=== PATIENT | female | born 1990 | race Caucasian/White ===

== ENCOUNTER 2018-09-01 19:50 | Emergency (ER) | payer SELFPAY ==
[2018-09-01 22:58] LABS: ADD MAN DIFF? NO
[2018-09-01 23:01] LABS: BASOPHILS % 0.2 % (0.0-2.0); EOSINOPHILS # 0.2 10^3/ul (0.0-0.5); EOSINOPHILS % 1.4 % (0.0-7.0); HEMATOCRIT 36.3 % (37.0-47.0); HEMOGLOBIN 12.2 g/dl (12.0-16.0); LYMPHOCYTES # 3.7 10^3/ul (0.8-2.9); LYMPHOCYTES % 22.4 % (15.0-51.0); MEAN CORPUSCULAR HEMOGLOBIN 30.3 pg (29.0-33.0); MEAN CORPUSCULAR HGB CONC 33.6 g/dl (32.0-37.0); MEAN CORPUSCULAR VOLUME 90.1 fl (82.0-101.0); MEAN PLATELET VOLUME 9.8 fl (7.4-10.4); MONOCYTE # 0.9 10^3/ul (0.3-0.9); MONOCYTES % 5.5 % (0.0-11.0); NEUTROPHIL # 11.6 10^3/ul (1.6-7.5); PLATELET COUNT 316 10^3/UL (140-415); RED BLOOD COUNT 4.03 10^6/ul (4.20-5.40); RED CELL DISTRIBUTION WIDTH 12.9 % (11.5-14.5)
[2018-09-01 23:01] LABS: WHITE BLOOD COUNT 16.5 10^3/ul (4.8-10.8)
[2018-09-01 23:45] LABS: ADD UMIC YES; UR ASCORBIC ACID NEGATIVE (NEGATIVE); UR BACTERIA FEW /HPF (NONE SEEN); UR BILIRUBIN (Dip) NEGATIVE (NEGATIVE); UR BLOOD (Dip) 1+ mg/dL (NEGATIVE); UR CLARITY CLEAR (CLEAR); UR COLOR RED (YELLOW); UR GLUCOSE (Dip) NEGATIVE (NEGATIVE); UR KETONES (Dip) NEGATIVE (NEGATIVE); UR LEUKOCYTE ESTERASE (Dip) NEGATIVE Leu/ul (NEGATIVE); UR NITRITE (Dip) NEGATIVE (NEGATIVE); UR RBC 0 /HPF (0-5); UR SPECIFIC GRAVITY (Dip) 1.003 (1.003-1.030); UR TOTAL PROTEIN (Dip) NEGATIVE (NEGATIVE); UR UROBILINOGEN (Dip) NEGATIVE (NEGATIVE); UR WBC 0 /HPF (0-5)
== END 2018-09-02 00:50 | disposition home or self-care (01) ==
LOC: FTE 09-02 00:50
DX: O20.9 Hemorrhage in early pregnancy, unspecified (principal); R10.2 Pelvic and perineal pain; Z3A.01 Less than 8 weeks gestation of pregnancy
CPT/HCPCS: 36415; 76801; 76817; 81001; 84702; 85025; 99284-25

== ENCOUNTER 2018-11-09 02:36 | Emergency (ER) | payer SELFPAY, MEDICAID | END 2018-11-09 04:09 | disposition left against medical advice (07) | LOC: FTE 02:36 | DX: Z53.21 Procedure and treatment not carried out due to patient leaving prior to being seen by health care provider (principal) ==

== ENCOUNTER 2019-04-16 08:49 | Inpatient (IN) | payer OTHER, MEDICAID ==
[2019-04-16] MEDS ORDERED: OXYTOCIN 30 UNITS/LR 500 ML IV (09:30)
[2019-04-16] MEDS ORDERED: CARBOPROST 250 MCG INJ IM (09:30)
[2019-04-16] MEDS ORDERED: BUTORPHANOL 2 MG INJ IV (09:30)
[2019-04-16] MEDS ORDERED: METHYLERGONOVINE 0.2 MG INJ IM (09:30)
[2019-04-16] MEDS ORDERED: LIDOCAINE 1% (MPF) 30 ML INJ INJ (09:30)
[2019-04-16 09:50] LABS: ADD MAN DIFF? NO
[2019-04-16 09:53] LABS: BASOPHILS % 0.2 % (0.0-2.0); EOSINOPHILS # 0.2 10^3/ul (0.0-0.5); HEMATOCRIT 34.7 % (37.0-47.0); HEMOGLOBIN 11.8 g/dl (12.0-16.0); LYMPHOCYTES # 3.3 10^3/ul (0.8-2.9); LYMPHOCYTES % 20.4 % (15.0-51.0); MEAN CORPUSCULAR HEMOGLOBIN 30.1 pg (29.0-33.0); MEAN CORPUSCULAR VOLUME 88.5 fl (82.0-101.0); MEAN PLATELET VOLUME 10.2 fl (7.4-10.4); MONOCYTE # 0.9 10^3/ul (0.3-0.9); MONOCYTES % 5.6 % (0.0-11.0); NEUTROPHIL # 11.7 10^3/ul (1.6-7.5); NEUTROPHILS % 71.6 % (39.0-77.0); PLATELET COUNT 266 10^3/UL (140-415); RED BLOOD COUNT 3.92 10^6/ul (4.20-5.40); RED CELL DISTRIBUTION WIDTH 14.6 % (11.5-14.5)
[2019-04-16 09:53] LABS: WHITE BLOOD COUNT 16.3 10^3/ul (4.8-10.8)
[2019-04-16 10:09] LABS: ANION GAP 7 (5-13); Estimated GFR > 60 mL/min (>60)
[2019-04-16 10:10] LABS: URIC ACID 7.2 mg/dl (3.1-7.9)
[2019-04-16 10:10] LABS: ALANINE AMINOTRANSFERASE 22 IU/L (13-69); ALBUMIN 3.3 g/dl (3.3-4.9); ALBUMIN/GLOBULIN RATIO 0.97; ALKALINE PHOSPHATASE 160 IU/L (42-121); ASPARTATE AMINO TRANSFERASE 25 IU/L (15-46); BILIRUBIN,INDIRECT 0.3 mg/dl (0-1.1); BILIRUBIN,TOTAL 0.3 mg/dl (0.2-1.3); BLOOD UREA NITROGEN 14 mg/dl (7-20); CARBON DIOXIDE 21 mmol/L (21-31); CHLORIDE 108 mmol/L (97-110); CREATININE 0.57 mg/dl (0.44-1.00); GLUCOSE 73 mg/dl (70-220); POTASSIUM 3.8 mmol/L (3.5-5.1); SODIUM 136 mmol/L (135-144); TOTAL PROTEIN 6.7 g/dl (6.1-8.1)
[2019-04-16 10:18] LABS: INR 0.91; PROTIME 12.4 Sec (11.9-14.9)
[2019-04-16 10:19] LABS: PARTIAL THROMBOPLASTIN TIME 27.6 Sec (23.0-35.0)
[2019-04-16] MEDS: LACTATED RINGER'S 1,000 ML IV ×3 (11:45→20:21)
[2019-04-16 12:14] LABS: HEPATITIS B SURFACE ANTIGEN NEGATIVE (NEGATIVE)
[2019-04-16] MEDS: AMPICILLIN 2 GM/NS (PMX) 100 ML IV (12:42)
[2019-04-16] MEDS: OXYTOCIN 30 UNITS/LR 500 ML IV (12:47)
[2019-04-16] MEDS ORDERED: MINERAL OIL LIGHT 10 ML VIAL TOP (13:30)
[2019-04-16 15:04] LABS: RAPID PLASMA REAGIN NONREACTIVE (NR)
[2019-04-16] MEDS ORDERED: MAGNESIUM SULFATE 4 GM/100 ML 100 ML (15:19)
[2019-04-16] MEDS ORDERED: NACL 0.9% 3 ML SYG IV (15:30)
[2019-04-16] MEDS ORDERED: CA GLUCONATE (GM) 10% 10ML INJ IV (15:30)
[2019-04-16] MEDS: AMPICILLIN 1 GM/NS (PMX) 50 ML IV ×2 (16:40→20:39)
[2019-04-16] MEDS: MAGNESIUM SULFATE 4 GM/100 ML 100 ML IV (16:46)
[2019-04-16] MEDS: MAGNESIUM SULFATE 20 GM/500 ML 500 ML IV (17:17)
[2019-04-16 18:12] LABS: MAGNESIUM 3.5 mg/dl (1.7-2.5)
[2019-04-16 18:30] LABS: ADD UMIC NO; UR ASCORBIC ACID NEGATIVE (NEGATIVE); UR BACTERIA FEW /HPF (NONE SEEN); UR BILIRUBIN (Dip) NEGATIVE (NEGATIVE); UR BLOOD (Dip) NEGATIVE (NEGATIVE); UR CLARITY SLIGHTLY CLOUDY (CLEAR); UR COLOR YELLOW (YELLOW); UR GLUCOSE (Dip) NEGATIVE (NEGATIVE); UR KETONES (Dip) NEGATIVE (NEGATIVE); UR LEUKOCYTE ESTERASE (Dip) NEGATIVE Leu/ul (NEGATIVE); UR NITRITE (Dip) NEGATIVE (NEGATIVE); UR RBC 1 /HPF (0-5); UR SPECIFIC GRAVITY (Dip) 1.016 (1.003-1.030); UR TOTAL PROTEIN (Dip) NEGATIVE (NEGATIVE); UR UROBILINOGEN (Dip) NEGATIVE (NEGATIVE); UR WBC 1 /HPF (0-5)
[2019-04-16] MEDS ORDERED: DIPHENHYDRAMINE 50 MG INJ IV (20:00)
[2019-04-16] MEDS ORDERED: KETOROLAC 30 MG INJ IV (20:00)
[2019-04-16] MEDS ORDERED: ONDANSETRON 4 MG INJ IV (20:00)
[2019-04-16] MEDS ORDERED: NALOXONE (0.4 MG/ML) INJ IV (20:00)
[2019-04-16] MEDS ORDERED: HYDROmorphONE 0.5 MG/0.5 ML SYG IV ×2 (20:00)
[2019-04-16] MEDS ORDERED: FENTAnyl 2MCG/ML-ROPIV 0.2% 100 ML BAG EPI (20:00)
[2019-04-16] MEDS ORDERED: FENTAnyl 2MCG/ML-ROPIV 0.2% 100 ML (20:06)
[2019-04-16] MEDS: LABETALOL HCL 20MG INJ IV (22:11)
[2019-04-17] MEDS: AMPICILLIN 1 GM/NS (PMX) 50 ML IV (00:55)
[2019-04-17 01:25] LABS: MAGNESIUM 5.7 mg/dl (1.7-2.5)
[2019-04-17] MEDS: LACTATED RINGER'S 1,000 ML IV (01:53)
[2019-04-17] MEDS: MAGNESIUM SULFATE 20 GM/500 ML 500 ML IV ×3 (03:24→21:06)
[2019-04-17] MEDS: OXYTOCIN 30 UNITS/LR 500 ML IV ×2 (03:25)
[2019-04-17] MEDS: MISOPROSTOL 200 MCG TAB PR (03:38)
[2019-04-17] MEDS: LABETALOL 200 MG TAB PO (04:48)
[2019-04-17] MEDS: LABETALOL HCL 20MG INJ IV (04:48)
[2019-04-17] MEDS: LACTATED RINGER'S 1,000 ML IV* ×3 (05:34→21:34)
[2019-04-17] MEDS: DEXTROSE 5%-LR 1,000 ML IV ×3 (05:34→21:34)
[2019-04-17] MEDS ORDERED: OXYTOCIN 30 UNITS/LR 500 ML IV (06:00)
[2019-04-17] MEDS ORDERED: MISOPROSTOL 200 MCG TAB PR (06:00)
[2019-04-17] MEDS ORDERED: METHYLERGONOVINE 0.2 MG INJ IM (06:00)
[2019-04-17] MEDS: IBUPROFEN 600 MG TAB PO ×3 (06:00→18:20)
[2019-04-17] MEDS ORDERED: DIPHENHYDRAMINE 50 MG INJ IV (06:00)
[2019-04-17] MEDS ORDERED: CARBOPROST 250 MCG INJ IM (06:00)
[2019-04-17] MEDS ORDERED: OXYCODONE/ASPIRIN (4.88/325) TAB PO (06:00)
[2019-04-17] MEDS ORDERED: ACETAMINOPHEN 325 MG TAB PO (06:00)
[2019-04-17] MEDS ORDERED: ZOLPIDEM 5 MG TAB PO (06:00)
[2019-04-17] MEDS ORDERED: DIBUCAINE 1% 30 GM OINT TOP (06:00)
[2019-04-17] MEDS ORDERED: ONDANSETRON 4 MG INJ IV (06:00)
[2019-04-17 07:20] LABS: MAGNESIUM 6.1 mg/dl (1.7-2.5)
[2019-04-17] MEDS: LABETALOL 200 MG TAB GTB ×2 (09:21→20:45)
[2019-04-17 13:02] LABS: MAGNESIUM 5.9 mg/dl (1.7-2.5)
[2019-04-17] MEDS: BENZOCAINE 20% 56 ML SPRAY TOP (13:56)
[2019-04-17] MEDS: WITCH HAZEL/GLYCERIN PAD PR (13:56)
[2019-04-17] MEDS: LANOLIN HPA 1 PKT TOP (13:56)
[2019-04-17 18:30] LABS: MAGNESIUM 5.9 mg/dl (1.7-2.5)
[2019-04-18] MEDS: IBUPROFEN 600 MG TAB PO ×4 (00:15→18:14)
[2019-04-18] MEDS: DEXTROSE 5%-LR 1,000 ML IV (05:34)
[2019-04-18] MEDS: LACTATED RINGER'S 1,000 ML IV* (05:34)
[2019-04-18 06:45] LABS: ADD MAN DIFF? NO
[2019-04-18 06:52] LABS: WHITE BLOOD COUNT 15.2 10^3/ul (4.8-10.8)
[2019-04-18 06:52] LABS: BASOPHILS % 0.1 % (0.0-2.0); EOSINOPHILS # 0.2 10^3/ul (0.0-0.5); EOSINOPHILS % 1.2 % (0.0-7.0); HEMATOCRIT 29.4 % (37.0-47.0); HEMOGLOBIN 9.8 g/dl (12.0-16.0); LYMPHOCYTES # 3.7 10^3/ul (0.8-2.9); LYMPHOCYTES % 24.1 % (15.0-51.0); MEAN CORPUSCULAR HEMOGLOBIN 29.9 pg (29.0-33.0); MEAN CORPUSCULAR HGB CONC 33.3 g/dl (32.0-37.0); MEAN CORPUSCULAR VOLUME 89.6 fl (82.0-101.0); MEAN PLATELET VOLUME 10.2 fl (7.4-10.4); MONOCYTES % 6.8 % (0.0-11.0); NEUTROPHIL # 10.1 10^3/ul (1.6-7.5); NEUTROPHILS % 66.9 % (39.0-77.0); PLATELET COUNT 216 10^3/UL (140-415); RED BLOOD COUNT 3.28 10^6/ul (4.20-5.40); RED CELL DISTRIBUTION WIDTH 15.5 % (11.5-14.5)
[2019-04-18 10:04] LABS: ALANINE AMINOTRANSFERASE 25 IU/L (13-69); ALBUMIN 2.5 g/dl (3.3-4.9); ALBUMIN/GLOBULIN RATIO 1.08; ALKALINE PHOSPHATASE 103 IU/L (42-121); ANION GAP 8 (5-13); ASPARTATE AMINO TRANSFERASE 25 IU/L (15-46); BILIRUBIN,INDIRECT 0.2 mg/dl (0-1.1); BILIRUBIN,TOTAL 0.2 mg/dl (0.2-1.3); BLOOD UREA NITROGEN 17 mg/dl (7-20); CALCIUM 8.3 mg/dl (8.4-10.2); CARBON DIOXIDE 23 mmol/L (21-31); CHLORIDE 105 mmol/L (97-110); CREATININE 0.73 mg/dl (0.44-1.00); Estimated GFR > 60 mL/min (>60); GLUCOSE 75 mg/dl (70-220); SODIUM 136 mmol/L (135-144); TOTAL PROTEIN 4.8 g/dl (6.1-8.1)
[2019-04-18] MEDS: SENNA/DOCUSATE NA (8.6MG/50MG) TAB PO (20:57)
[2019-04-19] MEDS: IBUPROFEN 600 MG TAB PO ×4 (00:08→18:26)
[2019-04-19] MEDS: DIPHTH/TET/ACEL PERTUSS (ADULT) 0.5 ML VIAL IM* (09:03)
[2019-04-19] MEDS: MEASLES,MUMPS,RUBELLA VACCINE INJ SC* (09:04)
[2019-04-19] MEDS: LABETALOL 200 MG TAB PO (13:23)
== END 2019-04-19 18:50 | disposition home or self-care (01) | DRG 806 ==
LOC: OBT 08:49 → PP1 04-17 05:06 → L-D 08:50 → OBT 09:43 → L-D 09:48
PROVIDERS: Obstetrics & Gynecology
PROC: 10E0XZZ Delivery of Products of Conception, External Approach (ICD-10-PCS; principal; 2019-04-17)
PROC: 0UQGXZZ Repair Vagina, External Approach (ICD-10-PCS; 2019-04-17)
PROC: 3E033VJ Introduction of Other Hormone into Peripheral Vein, Percutaneous Approach (ICD-10-PCS; 2019-04-17)
DX: O13.4 Gestational [pregnancy-induced] hypertension without significant proteinuria, complicating childbirth (principal); D62 Acute posthemorrhagic anemia; Z37.0 Single live birth; O71.4 Obstetric high vaginal laceration alone; O99.02 Anemia complicating childbirth; Z3A.39 39 weeks gestation of pregnancy
CPT/HCPCS: 62322; 76815; 76818; 80053; 81001; 81003; 83735; 84560; 85025; 85610; 85730; 86592; 86850; 86900; 86901; 87340; 99464